=== PATIENT | male | born 1955 | race Caucasian/White ===

== ENCOUNTER 2020-09-15 11:19 | Inpatient (IN) ==
[~2020-09-15 11:19] MED LIST: ACETAMINOPHEN 325 MG TABLET PO PRN; MAGNESIUM SULF RIDER 2 GM in PREMIX 1 EACH IV PRN; MAGNESIUM SULF RIDER 4 GM in PREMIX 1 EACH IV PRN; MORPHINE 4 MG/1 ML VIAL IV PRN; ONDANSETRON 4 MG/2 ML VIAL IV PRN; diphenhydrAMINE CAP 25 MG CAPSULE PO PRN
[2020-09-15] MEDS ORDERED: POTASSIUM CHLORIDE RIDER 10 MEQ in PREMIX 1 EACH IV PRN (11:28)
[2020-09-15] MEDS ORDERED: MAGNESIUM SULF RIDER 2 GM in PREMIX 1 EACH IV PRN (11:28)
[2020-09-16 04:12] LABS: Basophils # 0.1 10*3/uL (0.0-0.2); Basophils % 0.6 % (0.0-0.8); Eosinophils # 0.3 10*3/uL (0.0-0.87); Eosinophils % 3.3 % (0.00-10.9); Hematocrit 33.9 VOL% (42.0-52.0); Hemoglobin 11.2 GM/DL (14.0-18.0); Immature Granulocytes % 0.4 %; Immature Granulocytes Absolute 0.04 #; Lymphocytes # 1.8 10*3/uL (1.4-4.0); Lymphocytes % 19.3 % (21.2-54.2); Mean Platelet Volume 11.7 FL (9.6-12.0); Monocytes % 9.5 % (1.7-12.7); Neutrophils % 66.9 % (38.7-73.9); Platelet Count 195 T/CUMM (130-400); Red Blood Count 3.57 MC/CUMM (3.8-5.5); Red Cell Distribution Width 15.4 % (9.3-17.3); White Blood Count 9.5 T/CUMM (4-12)
[2020-09-16 04:52] LABS: Albumin 3.4 G/DL (3.4-5.0); Bilirubin,Total 1.1 MG/DL (0.2-1.0); Calcium 9.3 MG/DL (8.5-10.1); Potassium 4.5 MMOL/L (3.5-5.1)
[2020-09-16] MEDS ORDERED: diphenhydrAMINE CAP 50 MG CAPSULE PO ONE (06:30)
[2020-09-16] MEDS ORDERED: DIAZEPAM 5 MG TABLET PO ONE (06:30)
[2020-09-16] MEDS ORDERED: HEPARIN/NACL 0.9% 2 UNITS/ML 1,000 ML IV ONE (06:46)
[2020-09-16] MEDS ORDERED: MIDAZOLAM 2 MG/2 ML VIAL ONE (07:15)
[2020-09-16] MEDS ORDERED: LIDOCAINE 1% 20 ML VIAL ONE (07:15)
[2020-09-16] MEDS ORDERED: fentaNYL 100 MCG/2 ML VIAL ONE (07:15)
[2020-09-16] MEDS ORDERED: SODIUM CHLORIDE 0.9% 1,000 ML IV SCH (08:30)
[2020-09-16] MEDS ORDERED: METOPROLOL TARTRATE 50 MG TABLET PO SCH (09:00)
[2020-09-16] MEDS ORDERED: PNEUMOCOCCAL VACCINE (13 VALENT) 0.5 ML SYRINGE IM ONE (09:00)
[2020-09-16] MEDS ORDERED: APIXABAN 5 MG TABLET PO SCH (09:00)
[2020-09-16] MEDS ORDERED: LIRAGLUTIDE SUBCUT SCH (09:00)
[2020-09-16] MEDS ORDERED: INFLUENZA VIRUS VACCINE 0.5 ML SYRINGE IM ONE (09:00)
[2020-09-16] MEDS: SOTALOL 80 MG TABLET PO SCH ×2 (09:29→21:35)
[2020-09-16] MEDS: glipiZIDE 10 MG TABLET PO SCH ×2 (09:29→16:14)
[2020-09-16] MEDS: MELOXICAM 7.5 MG TABLET PO SCH (09:30)
[2020-09-16] MEDS: METOPROLOL TARTRATE 25 MG TABLET PO SCH ×2 (09:30→21:36)
[2020-09-16] MEDS: RANOLAZINE 500 MG TABLET PO SCH ×2 (09:30→21:36)
[2020-09-16] MEDS: MULTIVITAMIN (CENTRUM) TABLET PO SCH (09:30)
[2020-09-16] MEDS: CHOLECALCIFEROL 1,000 UNIT TABLET PO SCH (09:30)
[2020-09-16] MEDS: amLODIPine 5 MG TABLET PO SCH (09:31)
[2020-09-16] MEDS: PANTOPRAZOLE 40 MG TABLET PO SCH (09:31)
[2020-09-16] MEDS: CARBOXYMETHYLCELLULOSE 1% OPH SOLN BOTH EYES SCH (09:31)
[2020-09-16] MEDS: cycloSPORINE OPH EMUL 1 VIAL BOTH EYES SCH ×2 (09:32→21:36)
[2020-09-16] MEDS ORDERED: ATORVASTATIN 20 MG TABLET PO SCH (21:00)
[2020-09-16] MEDS: PIOGLITAZONE 15 MG TABLET PO SCH (21:35)
[2020-09-16] MEDS: ASPIRIN EC 81 MG TABLET PO SCH (21:35)
[2020-09-16] MEDS: FLUOROMETHOLONE 0.1% OPH SUSP 5 ML BOTTLE BOTH EYES SCH (21:35)
[2020-09-16] MEDS: GABAPENTIN 300 MG CAPSULE PO SCH (21:36)
[2020-09-16] MEDS: PYRIDOXINE 100 MG TABLET PO SCH (21:36)
[2020-09-17 06:01] LABS: Basophils # 0.1 10*3/uL (0.0-0.2); Basophils % 0.7 % (0.0-0.8); Eosinophils # 0.4 10*3/uL (0.0-0.87); Eosinophils % 5.3 % (0.00-10.9); Hematocrit 34.3 VOL% (42.0-52.0); Hemoglobin 11.1 GM/DL (14.0-18.0); Immature Granulocytes % 0.4 %; Immature Granulocytes Absolute 0.03 #; Lymphocytes # 1.4 10*3/uL (1.4-4.0); Lymphocytes % 17.9 % (21.2-54.2); Mean Corpuscular HGB Conc 32.4 GM/DL (32-36); Mean Corpuscular Volume 96.1 FL (87-102); Mean Platelet Volume 11.7 FL (9.6-12.0); Monocytes % 10.8 % (1.7-12.7); Neutrophils % 64.9 % (38.7-73.9); Platelet Count 186 T/CUMM (130-400); Red Blood Count 3.57 MC/CUMM (3.8-5.5); Red Cell Distribution Width 14.7 % (9.3-17.3); White Blood Count 7.6 T/CUMM (4-12)
[2020-09-17 06:18] LABS: Calcium 8.8 MG/DL (8.5-10.1); Potassium 4.1 MMOL/L (3.5-5.1)
[2020-09-17 06:19] LABS: Calcium 8.8 MG/DL (8.5-10.1); Osmolality,Calculated 286.8 MOS/KG (273-304); Potassium 4.1 MMOL/L (3.5-5.1)
[2020-09-17] MEDS ORDERED: MAGNESIUM SULF RIDER 2 GM in PREMIX 1 EACH IV PRN (07:00)
[2020-09-17] MEDS ORDERED: MAGNESIUM SULF RIDER 4 GM in PREMIX 1 EACH IV PRN (07:00)
[2020-09-17] MEDS: amLODIPine 5 MG TABLET PO SCH (09:42)
[2020-09-17] MEDS: glipiZIDE 10 MG TABLET PO SCH ×2 (09:42→16:32)
[2020-09-17] MEDS: SOTALOL 80 MG TABLET PO SCH ×2 (09:42→20:53)
[2020-09-17] MEDS: CHOLECALCIFEROL 1,000 UNIT TABLET PO SCH (09:42)
[2020-09-17] MEDS: ASCORBIC ACID 500 MG TABLET PO SCH ×2 (09:42→20:43)
[2020-09-17] MEDS: MULTIVITAMIN (CENTRUM) TABLET PO SCH (09:43)
[2020-09-17] MEDS: METOPROLOL TARTRATE 25 MG TABLET PO SCH ×2 (09:43→20:43)
[2020-09-17] MEDS: MELOXICAM 7.5 MG TABLET PO SCH (09:43)
[2020-09-17] MEDS: PANTOPRAZOLE 40 MG TABLET PO SCH (09:43)
[2020-09-17] MEDS: RANOLAZINE 500 MG TABLET PO SCH ×2 (09:43→20:43)
[2020-09-17] MEDS: CARBOXYMETHYLCELLULOSE 1% OPH SOLN BOTH EYES SCH (09:46)
[2020-09-17] MEDS: cycloSPORINE OPH EMUL 1 VIAL BOTH EYES SCH ×2 (09:46→20:42)
[2020-09-17] MEDS ORDERED: GLUCAGON 1 MG VIAL IM PRN ×2 (10:16→13:24)
[2020-09-17] MEDS ORDERED: DEXTROSE 50% 25 GM/50 ML VIAL IV PRN ×2 (10:16→13:24)
[2020-09-17] MEDS: INSULIN REGULAR 100 UNIT/ML SUBCUT SCH ×2 (16:32→20:52)
[2020-09-17] MEDS: PYRIDOXINE 100 MG TABLET PO SCH (20:43)
[2020-09-17] MEDS: PIOGLITAZONE 15 MG TABLET PO SCH (20:43)
[2020-09-17] MEDS: ASPIRIN EC 81 MG TABLET PO SCH (20:43)
[2020-09-17] MEDS: GABAPENTIN 300 MG CAPSULE PO SCH (20:43)
[2020-09-17] MEDS: ATORVASTATIN 40 MG TABLET PO SCH (20:43)
[2020-09-17] MEDS: FLUOROMETHOLONE 0.1% OPH SUSP 5 ML BOTTLE BOTH EYES SCH (20:47)
[2020-09-18 06:05] LABS: Basophils % 0.3 % (0.0-0.8); Eosinophils # 0.6 10*3/uL (0.0-0.87); Eosinophils % 6.6 % (0.00-10.9); Hematocrit 35.7 VOL% (42.0-52.0); Hemoglobin 11.5 GM/DL (14.0-18.0); Immature Granulocytes % 0.6 %; Immature Granulocytes Absolute 0.05 #; Lymphocytes # 1.9 10*3/uL (1.4-4.0); Lymphocytes % 21.9 % (21.2-54.2); Mean Corpuscular HGB Conc 32.2 GM/DL (32-36); Mean Corpuscular Volume 96.2 FL (87-102); Mean Platelet Volume 12.1 FL (9.6-12.0); Monocytes % 9.5 % (1.7-12.7); Neutrophils % 61.1 % (38.7-73.9); Platelet Count 213 T/CUMM (130-400); Red Blood Count 3.71 MC/CUMM (3.8-5.5); Red Cell Distribution Width 14.6 % (9.3-17.3); White Blood Count 8.8 T/CUMM (4-12)
[2020-09-18 07:54] LABS: Calcium 8.9 MG/DL (8.5-10.1); Osmolality,Calculated 284.7 MOS/KG (273-304)
[2020-09-18] MEDS: METOPROLOL TARTRATE 25 MG TABLET PO SCH ×2 (08:42→21:28)
[2020-09-18] MEDS: MELOXICAM 7.5 MG TABLET PO SCH (08:42)
[2020-09-18] MEDS: amLODIPine 5 MG TABLET PO SCH (08:42)
[2020-09-18] MEDS: SOTALOL 80 MG TABLET PO SCH ×2 (08:42→21:29)
[2020-09-18] MEDS: CHOLECALCIFEROL 1,000 UNIT TABLET PO SCH (08:42)
[2020-09-18] MEDS: glipiZIDE 10 MG TABLET PO SCH ×2 (08:42→16:20)
[2020-09-18] MEDS: MULTIVITAMIN (CENTRUM) TABLET PO SCH (08:42)
[2020-09-18] MEDS: INSULIN REGULAR 100 UNIT/ML SUBCUT SCH ×4 (08:43→21:28)
[2020-09-18] MEDS: RANOLAZINE 500 MG TABLET PO SCH ×2 (08:43→21:23)
[2020-09-18] MEDS: cycloSPORINE OPH EMUL 1 VIAL BOTH EYES SCH ×2 (08:43→21:27)
[2020-09-18] MEDS: PANTOPRAZOLE 40 MG TABLET PO SCH (08:43)
[2020-09-18] MEDS: CARBOXYMETHYLCELLULOSE 1% OPH SOLN BOTH EYES SCH (08:43)
[2020-09-18] MEDS: ASCORBIC ACID 500 MG TABLET PO SCH ×2 (08:43→21:23)
[2020-09-18] MEDS ORDERED: FUROSEMIDE 40 MG/4 ML VIAL IV ONE (11:41)
[2020-09-18] MEDS: ASPIRIN EC 81 MG TABLET PO SCH (21:23)
[2020-09-18] MEDS: GABAPENTIN 300 MG CAPSULE PO SCH (21:23)
[2020-09-18] MEDS: PIOGLITAZONE 15 MG TABLET PO SCH (21:23)
[2020-09-18] MEDS: PYRIDOXINE 100 MG TABLET PO SCH (21:24)
[2020-09-18] MEDS: ATORVASTATIN 40 MG TABLET PO SCH (21:24)
[2020-09-18] MEDS: FLUOROMETHOLONE 0.1% OPH SUSP 5 ML BOTTLE BOTH EYES SCH (21:28)
[2020-09-19 06:36] LABS: Basophils % 0.5 % (0.0-0.8); Eosinophils # 0.5 10*3/uL (0.0-0.87); Eosinophils % 6.2 % (0.00-10.9); Hematocrit 34.1 VOL% (42.0-52.0); Hemoglobin 11.1 GM/DL (14.0-18.0); Immature Granulocytes % 0.8 %; Immature Granulocytes Absolute 0.06 #; Lymphocytes # 1.7 10*3/uL (1.4-4.0); Lymphocytes % 22.4 % (21.2-54.2); Mean Corpuscular HGB Conc 32.6 GM/DL (32-36); Mean Corpuscular Volume 95.3 FL (87-102); Mean Platelet Volume 12.3 FL (9.6-12.0); Monocytes % 8.8 % (1.7-12.7); Neutrophils % 61.3 % (38.7-73.9); Platelet Count 204 T/CUMM (130-400); Red Blood Count 3.58 MC/CUMM (3.8-5.5); Red Cell Distribution Width 14.5 % (9.3-17.3); White Blood Count 7.8 T/CUMM (4-12)
[2020-09-19 06:42] LABS: Calcium 8.6 MG/DL (8.5-10.1); Osmolality,Calculated 284.7 MOS/KG (273-304); Potassium 3.5 MMOL/L (3.5-5.1)
[2020-09-19 07:00] LABS: Albumin 3.3 G/DL (3.4-5.0); Bilirubin,Total 1.4 MG/DL (0.2-1.0); Calcium 8.5 MG/DL (8.5-10.1); Osmolality,Calculated 288.4 MOS/KG (273-304); Potassium 3.6 MMOL/L (3.5-5.1); Total Protein 6.7 G/DL (6.4-8.3)
[2020-09-19] MEDS ORDERED: CHLORHEXIDINE 4% SOLN 118 ML BOTTLE TOP SCH (09:00)
[2020-09-19] MEDS: SOTALOL 80 MG TABLET PO SCH ×2 (09:51→20:33)
[2020-09-19] MEDS: glipiZIDE 10 MG TABLET PO SCH ×2 (09:51→16:40)
[2020-09-19] MEDS: MELOXICAM 7.5 MG TABLET PO SCH (09:51)
[2020-09-19] MEDS: ASCORBIC ACID 500 MG TABLET PO SCH ×2 (09:51→20:29)
[2020-09-19] MEDS: RANOLAZINE 500 MG TABLET PO SCH ×2 (09:51→20:29)
[2020-09-19] MEDS: MULTIVITAMIN (CENTRUM) TABLET PO SCH (09:51)
[2020-09-19] MEDS: amLODIPine 5 MG TABLET PO SCH (09:52)
[2020-09-19] MEDS: PANTOPRAZOLE 40 MG TABLET PO SCH (09:52)
[2020-09-19] MEDS: CHOLECALCIFEROL 1,000 UNIT TABLET PO SCH (09:52)
[2020-09-19] MEDS: METOPROLOL TARTRATE 25 MG TABLET PO SCH ×2 (09:52→20:29)
[2020-09-19] MEDS: CARBOXYMETHYLCELLULOSE 1% OPH SOLN BOTH EYES SCH (09:56)
[2020-09-19] MEDS: CHLORHEXIDINE 0.12% ORAL RINSE 60 ML BOTTLE SWISH/SPIT SCH ×2 (09:56→20:28)
[2020-09-19] MEDS: cycloSPORINE OPH EMUL 1 VIAL BOTH EYES SCH ×2 (09:56→20:30)
[2020-09-19] MEDS ORDERED: SODIUM CHLORIDE 0.9% 1,000 ML IV SCH (10:30)
[2020-09-19] MEDS: INSULIN REGULAR 100 UNIT/ML SUBCUT SCH ×4 (10:41→20:32)
[2020-09-19 10:43] LABS: Allen Test Positive; Pt O2 Delivery Device Room Air
[2020-09-19 10:46] LABS: ABG Base Excess -3.1 MMOL/L (-2.5-2.5); ABG HCO3 21.8 MMOL/L (20-26); ABG Oxygen Saturation 95.8 % (95-100); ABG PO2 81.9 MM HG (80-95); ABG TCO2 19.1 MMOL/L (23-27)
[2020-09-19] MEDS ORDERED: POTASSIUM CHLORIDE 20 MEQ TABLET PO ONE (11:17)
[2020-09-19] MEDS: CHLORHEXIDINE 4% SOLN 118 ML BOTTLE TOP SCH ×2 (14:45→20:29)
[2020-09-19] MEDS: PYRIDOXINE 100 MG TABLET PO SCH (20:29)
[2020-09-19] MEDS: GABAPENTIN 300 MG CAPSULE PO SCH (20:29)
[2020-09-19] MEDS: ATORVASTATIN 40 MG TABLET PO SCH (20:29)
[2020-09-19] MEDS: ASPIRIN EC 81 MG TABLET PO SCH (20:29)
[2020-09-19] MEDS: PIOGLITAZONE 15 MG TABLET PO SCH (20:29)
[2020-09-19] MEDS: FLUOROMETHOLONE 0.1% OPH SUSP 5 ML BOTTLE BOTH EYES SCH (20:33)
[2020-09-20] MEDS ORDERED: PAPAVERINE 60 MG/2 ML VIAL ONE (04:56)
[2020-09-20] MEDS ORDERED: VANCOMYCIN 1,000 MG VIAL ONE (04:56)
[2020-09-20] MEDS ORDERED: VANCOMYCIN 500 MG VIAL ONE (04:56)
[2020-09-20] MEDS ORDERED: CEFUROXIME INJ 1,500 MG in SYRINGE 1 EACH IV ONE (05:00)
[2020-09-20] MEDS ORDERED: SODIUM CHLORIDE 0.9% 1,000 ML IV ONE (06:09)
[2020-09-20] MEDS ORDERED: LACTATED RINGERS 1,000 ML IV ONE ×4 (06:10→16:30)
[2020-09-20] MEDS ORDERED: PHENYLEPHRINE DRIP 20 MG/250 ML PREMIX IV ONE ×2 (06:12→10:44)
[2020-09-20] MEDS ORDERED: SODIUM CHLORIDE 0.9% 250 ML IV ONE (06:12)
[2020-09-20] MEDS ORDERED: HEPARIN/NACL 0.9% 2 UNITS/ML 500 ML IV ONE (06:13)
[2020-09-20] MEDS ORDERED: SEVOFLURANE 1 UNIT/15 MINUTE INH ONE (06:13)
[2020-09-20] MEDS ORDERED: AMINOCAPROIC ACID 5,000 MG/20 ML VIAL ONE ×4 (06:14)
[2020-09-20] MEDS ORDERED: MINERAL OIL/PETROLATUM OPH OINT 3.5 GM TUBE ONE (06:14)
[2020-09-20] MEDS ORDERED: VECURONIUM 10 MG VIAL IV ONE ×4 (06:19→09:20)
[2020-09-20] MEDS ORDERED: CALCIUM CHLORIDE 1,000 MG/10 ML VIAL IV ONE ×2 (06:19→09:11)
[2020-09-20] MEDS ORDERED: ETOMIDATE 40 MG/20 ML VIAL IV ONE (06:19)
[2020-09-20] MEDS ORDERED: LIDOCAINE 2% 5 ML VIAL ONE ×2 (06:19→11:10)
[2020-09-20] MEDS ORDERED: MIDAZOLAM 10 MG/2 ML VIAL ONE ×4 (06:27→09:20)
[2020-09-20] MEDS ORDERED: SUFentanil 250 MCG/5 ML AMP ONE ×2 (06:27→07:47)
[2020-09-20] MEDS ORDERED: FAMOTIDINE 20 MG/2 ML VIAL IV ONE (06:30)
[2020-09-20] MEDS ORDERED: ePHEDrine 50 MG/ML VIAL ONE (07:22)
[2020-09-20 07:43] LABS: ABG Base Excess -3.5 MMOL/L (-2.5-2.5); ABG HCO3 21.5 MMOL/L (20-26); ABG PCO2 36.7 MM HG (35-48); ABG TCO2 19.4 MMOL/L (23-27); Glucose Heart Surgery 222 MG/DL (74-106); Hematocrit Heart Surgery 30.8 PERCENT (42-52); PCO2 Patient Temp Arterial 36.7 MMHG; Patient Temperature 37 CELCIUS; Potassium Heart/CVR 4.3 MMOL/L (3.5-5.1); Sodium Heart/CVR 140 MMOL/L (135-145)
[2020-09-20 07:52] LABS: Bacteria,Urine Occasional /HPF (Few); Bilirubin,Urine Negative (Negative); Blood, Urine Negative (Negative); Glucose,Urine (UA) >=500 mg/dL (Negative); Ketones,Urine Negative (Negative); Mucus,Urine Occasional /LPF (Occasional); Nitrite,Urine Negative (Negative); Protein,Urine Negative; RBC,Urine 2 /HPF (0-4); Squamous Epithelial Cell,Urine Occasional /HPF (0-10); Urine Appearance CLEAR (Clear); Urine Color Yellow (Yellow); Urine Specific Gravity 1.016 (1.001-1.035); Urine Urobilinogen < 2.0 EU/DL (0.2-1.0); WBC,Urine <1 /HPF (0-6)
[2020-09-20] MEDS ORDERED: SODIUM BICARBONATE 50 MEQ/50 ML VIAL IV ONE ×2 (08:12→11:11)
[2020-09-20] MEDS ORDERED: POTASSIUM CHLORIDE RIDER 100 ML IV ONE (08:12)
[2020-09-20] MEDS ORDERED: NITROPRUSSIDE 50 MG/2 ML VIAL ONE (08:12)
[2020-09-20] MEDS ORDERED: PHENYLEPHRINE DRIP 40 MG/250 ML PREMIX IV ONE (08:13)
[2020-09-20] MEDS ORDERED: ALBUMIN 5% 12.5 GM/250 ML VIAL IV ONE (08:14)
[2020-09-20] MEDS ORDERED: LIDOCAINE 100 MG/5 ML SYRINGE ONE (08:14)
[2020-09-20] MEDS ORDERED: ATROPINE 1 MG/10 ML SYRINGE ONE (08:14)
[2020-09-20] MEDS ORDERED: EPINEPHrine 1 MG/10 ML SYRINGE ONE (08:15)
[2020-09-20] MEDS ORDERED: diphenhydrAMINE 50 MG/1 ML VIAL ONE (09:20)
[2020-09-20 09:39] LABS: Hematocrit Heart Surgery 24.4 PERCENT (42-52); Hemoglobin Heart Surgery 7.8 G/DL (14.0-18.0); PCO2 Patient Temp Venous 42.5 MM HG; PH Patient Temp Venous 7.352; PO2 Patient Temp Venous 43.1 MM HG; Potassium Heart/CVR 4.9 MMOL/L (3.5-5.1); VBG Base Excess -1.8 MEQ/L (0-4); VBG HCO3 22.6 MEQ/L (24-28); VBG Oxygen Saturation 75.8 %; VBG PCO2 44.6 MMHG (41-51); VBG PH 7.338; VBG PO2 46.2 MMHG (17-40); VBG Total CO2 22.6 MMOL/L
[2020-09-20 10:09] LABS: Hematocrit Heart Surgery 22.7 PERCENT (42-52); Hemoglobin Heart Surgery 7.3 G/DL (14.0-18.0); PCO2 Patient Temp Venous 36.1 MM HG; PH Patient Temp Venous 7.406; PO2 Patient Temp Venous 41.2 MM HG; Potassium Heart/CVR 5.4 MMOL/L (3.5-5.1); VBG Base Excess -1.6 MEQ/L (0-4); VBG HCO3 22.8 MEQ/L (24-28); VBG Oxygen Saturation 79.4 %; VBG PCO2 39.8 MMHG (41-51); VBG PH 7.377; VBG PO2 47.2 MMHG (17-40); VBG Total CO2 22.1 MMOL/L
[2020-09-20 10:39] LABS: Hematocrit Heart Surgery 22.9 PERCENT (42-52); Hemoglobin Heart Surgery 7.3 G/DL (14.0-18.0); PCO2 Patient Temp Venous 31.2 MM HG; PH Patient Temp Venous 7.454; Potassium Heart/CVR 5.5 MMOL/L (3.5-5.1); VBG Base Excess -1.5 MEQ/L (0-4); VBG HCO3 22.8 MEQ/L (24-28); VBG PCO2 34.4 MMHG (41-51); VBG PH 7.424; VBG PO2 39.1 MMHG (17-40); VBG Total CO2 21.3 MMOL/L
[2020-09-20 11:08] LABS: ABG Base Excess -3.2 MMOL/L (-2.5-2.5); ABG HCO3 21.7 MMOL/L (20-26); ABG PCO2 36.4 MM HG (35-48); ABG PH 7.379 (7.35-7.45); ABG TCO2 20.1 MMOL/L (23-27); Glucose Heart Surgery 313 MG/DL (74-106); Hematocrit Heart Surgery 24.1 PERCENT (42-52); Hemoglobin Heart Surgery 7.7 G/DL (14.0-18.0); Ionized Calcium Arterial 1.38 MMOL/L (1.21-1.46); PCO2 Patient Temp Arterial 36.4 MMHG; PH Patient Temp Arterial 7.379; Patient Temperature 37 CELCIUS; Potassium Heart/CVR 4.5 MMOL/L (3.5-5.1); Sodium Heart/CVR 132 MMOL/L (135-145)
[2020-09-20] MEDS ORDERED: ALBUMIN 25% 25 GM/100 ML VIAL IV ONE (11:10)
[2020-09-20] MEDS ORDERED: MAGNESIUM SULFATE 5 GM/10 ML VIAL IV ONE (11:10)
[2020-09-20] MEDS ORDERED: methylPREDNISolone SOD SUC 1,000 MG/8 ML VIAL ONE (11:10)
[2020-09-20] MEDS ORDERED: DEXTROSE 5% KCL 20 MEQ 20 MEQ/1,000 ML BAG IV ONE (11:10)
[2020-09-20] MEDS ORDERED: MANNITOL 100 GM/500 ML BAG IV ONE (11:10)
[2020-09-20] MEDS ORDERED: FUROSEMIDE 20 MG/2 ML VIAL ONE (11:11)
[2020-09-20] MEDS ORDERED: HEPARIN 10,000 UNIT/10 ML VIAL ONE (11:11)
[2020-09-20] MEDS ORDERED: PROTAMINE SULFATE 50 MG/5 ML VIAL IV ONE (11:11)
[2020-09-20] MEDS ORDERED: PROTAMINE SULFATE 250 MG/25 ML VIAL IV ONE (11:11)
[2020-09-20] MEDS ORDERED: SODIUM CHLORIDE 0.45% 1,000 ML IV SCH ×3 (11:45→11:48)
[2020-09-20] MEDS ORDERED: MIDAZOLAM 2 MG/2 ML VIAL IV PRN (11:48)
[2020-09-20] MEDS ORDERED: DEXTROSE 50% 25 GM/50 ML VIAL IV PRN ×2 (11:48)
[2020-09-20] MEDS ORDERED: CHLORHEXIDINE 4% SOLN 118 ML BOTTLE TOP PRN (11:48)
[2020-09-20] MEDS ORDERED: MAGNESIUM SULF RIDER 2 GM in PREMIX 1 EACH IV PRN (11:48)
[2020-09-20] MEDS ORDERED: LACTATED RINGERS 250 ML IV PRN (11:48)
[2020-09-20] MEDS ORDERED: MORPHINE 4 MG/1 ML VIAL IV PRN (11:48)
[2020-09-20] MEDS ORDERED: CALCIUM CHLORIDE 1,000 MG/10 ML SYRINGE IV PRN (11:48)
[2020-09-20] MEDS ORDERED: INSULIN REGULAR 100 UNIT/ML IV ONE (11:48)
[2020-09-20] MEDS ORDERED: ONDANSETRON 4 MG/2 ML VIAL IV PRN (11:48)
[2020-09-20] MEDS ORDERED: INSULIN REGULAR 100 UNIT/ML IV PRN (11:48)
[2020-09-20] MEDS ORDERED: PHENYLEPHRINE DRIP 40 MG/250 ML PREMIX IV PRN (11:48)
[2020-09-20] MEDS ORDERED: MAGNESIUM SULF RIDER 4 GM in PREMIX 1 EACH IV PRN (11:48)
[2020-09-20] MEDS ORDERED: NITROPRUSSIDE 100 MG in DEXTROSE 5% 250 ML IV PRN (11:48)
[2020-09-20] MEDS ORDERED: ACETAMINOPHEN 650 MG SUPP RECTAL PRN (11:48)
[2020-09-20] MEDS ORDERED: MORPHINE 10 MG/1 ML VIAL IV PRN (11:48)
[2020-09-20] MEDS ORDERED: MIDAZOLAM 10 MG/2 ML VIAL IV PRN (11:48)
[2020-09-20] MEDS ORDERED: VECURONIUM 10 MG VIAL IV PRN ×2 (11:48)
[2020-09-20 12:08] LABS: ABG Base Excess -4.1 MMOL/L (-2.5-2.5); ABG HCO3 19.5 MMOL/L (20-26); ABG Oxygen Saturation 98.9 % (95-100); ABG PCO2 30.5 MM HG (35-48); ABG PH 7.423 (7.35-7.45); ABG PO2 302.4 MM HG (80-95); ABG TCO2 20.4 MMOL/L (23-27); Glucose Heart Surgery 288 MG/DL (74-106); Hemoglobin Heart Surgery 10.8 G/DL (14.0-18.0); Potassium Heart/CVR 3.8 MMOL/L (3.5-5.1)
[2020-09-20 12:10] LABS: Basophils % 0.3 % (0.0-0.8); Eosinophils # 0.2 10*3/uL (0.0-0.87); Eosinophils % 1.3 % (0.00-10.9); Hematocrit 27.7 VOL% (42.0-52.0); Hemoglobin 8.8 GM/DL (14.0-18.0); Immature Granulocytes % 1.6 %; Lymphocytes # 0.8 10*3/uL (1.4-4.0); Lymphocytes % 6.7 % (21.2-54.2); Mean Corpuscular HGB Conc 31.8 GM/DL (32-36); Mean Corpuscular Volume 97.5 FL (87-102); Mean Platelet Volume 12.1 FL (9.6-12.0); Monocytes % 4.4 % (1.7-12.7); Neutrophils % 85.7 % (38.7-73.9); Platelet Count 166 T/CUMM (130-400); Red Blood Count 2.84 MC/CUMM (3.8-5.5); Red Cell Distribution Width 14.6 % (9.3-17.3); White Blood Count 12.1 T/CUMM (4-12)
[2020-09-20] MEDS: CHLORHEXIDINE 4% SOLN 118 ML BOTTLE TOP SCH (12:19)
[2020-09-20] MEDS: cycloSPORINE OPH EMUL 1 VIAL BOTH EYES SCH ×2 (12:22→22:31)
[2020-09-20] MEDS: POTASSIUM CHLORIDE RIDER 20 MEQ in PREMIX 1 EACH IV PRN ×4 (12:24→20:17)
[2020-09-20 12:27] LABS: INR 1.2; Partial Thromboplastin Time 28.2 SECS (23.9-33.8)
[2020-09-20 12:36] LABS: Albumin 3.2 G/DL (3.4-5.0); Bilirubin,Total 0.9 MG/DL (0.2-1.0); Calcium 8.8 MG/DL (8.5-10.1); Osmolality,Calculated 290.7 MOS/KG (273-304); Total Protein 5.4 G/DL (6.4-8.3)
[2020-09-20 12:37] LABS: CKMB % 9.7 %
[2020-09-20 12:41] LABS: Troponin I 3.41 NG/ML (0.00-0.045)
[2020-09-20] MEDS: POTASSIUM CHLORIDE RIDER 10 MEQ in PREMIX 1 EACH IV PRN ×2 (13:34→20:47)
[2020-09-20 13:41] LABS: VBG Base Excess -1.5 MEQ/L (0-4); VBG PCO2 37.8 MMHG (41-51); VBG PH 7.394; VBG PO2 35.6 MMHG (17-40)
[2020-09-20 13:42] LABS: VBG HCO3 22.6 MEQ/L (24-28); VBG Total CO2 21.2 MMOL/L
[2020-09-20 13:43] LABS: Potassium Heart/CVR 4.2 MMOL/L (3.5-5.1); Sodium Heart/CVR 138 MMOL/L (135-145)
[2020-09-20] MEDS: INSULIN REGULAR DRIP 100 ML IV SCH (14:28)
[2020-09-20 14:55] LABS: Hematocrit Heart Surgery 28.7 PERCENT (42-52); Hemoglobin Heart Surgery 9.3 G/DL (14.0-18.0); PCO2 Patient Temp Venous 38.9 MM HG; PH Patient Temp Venous 7.398; PO2 Patient Temp Venous 34.7 MM HG; Potassium Heart/CVR 4.1 MMOL/L (3.5-5.1); VBG Base Excess -0.7 MEQ/L (0-4); VBG HCO3 23.3 MEQ/L (24-28); VBG Oxygen Saturation 59.2 %; VBG PCO2 38.9 MMHG (41-51); VBG PH 7.398; VBG PO2 34.7 MMHG (17-40); VBG Total CO2 22.2 MMOL/L
[2020-09-20] MEDS: ALBUMIN 5% 12.5 GM in PREMIX 1 EACH IV PRN ×3 (16:00→19:39)
[2020-09-20 16:41] LABS: ABG Base Excess -2.8 MMOL/L (-2.5-2.5); ABG HCO3 22.1 MMOL/L (20-26); ABG PCO2 34.9 MM HG (35-48); ABG PH 7.396 (7.35-7.45); ABG TCO2 19.2 MMOL/L (23-27); Glucose Heart Surgery 229 MG/DL (74-106); Hemoglobin Heart Surgery 11.3 G/DL (14.0-18.0); Potassium Heart/CVR 3.5 MMOL/L (3.5-5.1)
[2020-09-20 18:31] LABS: ABG Base Excess -2.9 MMOL/L (-2.5-2.5); ABG Oxygen Saturation 99.5 % (95-100); ABG PCO2 38.8 MM HG (35-48); ABG PH 7.365 (7.35-7.45); ABG TCO2 20.5 MMOL/L (23-27); Glucose Heart Surgery 188 MG/DL (74-106); Hematocrit Heart Surgery 26.8 PERCENT (42-52); Hemoglobin Heart Surgery 8.6 G/DL (14.0-18.0); Potassium Heart/CVR 4.3 MMOL/L (3.5-5.1)
[2020-09-20] MEDS: CEFUROXIME INJ 1,500 MG in SYRINGE 1 EACH IV SCH (19:36)
[2020-09-20 20:03] LABS: ABG Base Excess -2.5 MMOL/L (-2.5-2.5); ABG HCO3 22.3 MMOL/L (20-26); ABG Oxygen Saturation 99.1 % (95-100); ABG PCO2 38.5 MM HG (35-48); ABG PH 7.373 (7.35-7.45); Glucose Heart Surgery 152 MG/DL (74-106); Hematocrit Heart Surgery 24.8 PERCENT (42-52); Potassium Heart/CVR 3.8 MMOL/L (3.5-5.1)
[2020-09-20 20:26] LABS: CKMB % 8.4 %
[2020-09-20 20:29] LABS: Troponin I 6.95 NG/ML (0.00-0.045)
[2020-09-20] MEDS: CHLORHEXIDINE 0.12% ORAL RINSE 60 ML BOTTLE SWISH/SPIT SCH (21:02)
[2020-09-20] MEDS ORDERED: FUROSEMIDE 40 MG/4 ML VIAL IV ONE (23:10)
[2020-09-21 00:18] LABS: ABG Base Excess -2.3 MMOL/L (-2.5-2.5); ABG HCO3 22.1 MMOL/L (20-26); ABG Oxygen Saturation 97.5 % (95-100); ABG PCO2 36.1 MM HG (35-48); ABG PH 7.404 (7.35-7.45); ABG PO2 108.4 MM HG (80-95); ABG TCO2 23.2 MMOL/L (23-27); Glucose Heart Surgery 92 MG/DL (74-106); Hemoglobin Heart Surgery 10.1 G/DL (14.0-18.0); Potassium Heart/CVR 3.9 MMOL/L (3.5-5.1)
[2020-09-21] MEDS: POTASSIUM CHLORIDE RIDER 20 MEQ in PREMIX 1 EACH IV PRN ×2 (00:26→04:25)
[2020-09-21] MEDS: POTASSIUM CHLORIDE RIDER 10 MEQ in PREMIX 1 EACH IV PRN ×2 (01:00→05:25)
[2020-09-21] MEDS: INSULIN REGULAR DRIP 100 ML IV SCH (01:17)
[2020-09-21 03:23] LABS: ABG Base Excess -1.2 MMOL/L (-2.5-2.5); ABG HCO3 23.4 MMOL/L (20-26); ABG Oxygen Saturation 99.1 % (95-100); ABG PCO2 32.9 MM HG (35-48); ABG PH 7.441 (7.35-7.45); ABG TCO2 20.3 MMOL/L (23-27); Glucose Heart Surgery 115 MG/DL (74-106); Hematocrit Heart Surgery 30.5 PERCENT (42-52); Hemoglobin Heart Surgery 9.9 G/DL (14.0-18.0); Potassium Heart/CVR 4.3 MMOL/L (3.5-5.1)
[2020-09-21 03:37] LABS: Basophils % 0.1 % (0.0-0.8); Hematocrit 29.7 VOL% (42.0-52.0); Hemoglobin 9.7 GM/DL (14.0-18.0); Immature Granulocytes % 0.9 %; Immature Granulocytes Absolute 0.19 #; Lymphocytes % 4.6 % (21.2-54.2); Mean Corpuscular HGB Conc 32.7 GM/DL (32-36); Mean Corpuscular Volume 93.1 FL (87-102); Mean Platelet Volume 12.1 FL (9.6-12.0); Monocytes % 4.8 % (1.7-12.7); Neutrophils % 89.6 % (38.7-73.9); Platelet Count 162 T/CUMM (130-400); Red Blood Count 3.19 MC/CUMM (3.8-5.5); Red Cell Distribution Width 15.6 % (9.3-17.3); White Blood Count 21.3 T/CUMM (4-12)
[2020-09-21 03:43] LABS: Alanine Aminotransferase 21 U/L (16-61); Albumin 3.1 G/DL (3.4-5.0); Alkaline Phosphatase 79 U/L (45-117); Aspartate Amino Transferase 19 U/L (0-37); Bilirubin,Total < 0.39 MG/DL (0.2-1.0); Blood Urea Nitrogen 10 MG/DL (7-18); Calcium 8.5 MG/DL (8.5-10.1); Carbon Dioxide 26 MMOL/L (21-32); Estimated Glom Filtration Rate 117 ML/MIN; Glucose 98 MG/DL (74-106); Osmolality,Calculated 275.5 MOS/KG (273-304); Potassium 3.7 MMOL/L (3.5-5.1); Sodium 139 MMOL/L (136-145); Total Protein 7.2 G/DL (6.4-8.3)
[2020-09-21 04:11] LABS: ABG Base Excess -1.3 MMOL/L (-2.5-2.5); ABG HCO3 23.4 MMOL/L (20-26); ABG Oxygen Saturation 98.1 % (95-100); ABG PCO2 33.2 MM HG (35-48); ABG PH 7.437 (7.35-7.45); ABG TCO2 20.4 MMOL/L (23-27); Glucose Heart Surgery 113 MG/DL (74-106); Hematocrit Heart Surgery 29.7 PERCENT (42-52); Hemoglobin Heart Surgery 9.6 G/DL (14.0-18.0); Potassium Heart/CVR 4.1 MMOL/L (3.5-5.1)
[2020-09-21 05:12] LABS: Hypochromasia Slight; Lymphocytes 3 % (20-55); Microcytosis Slight; Platelet Estimate Adequate; Segmented Neutrophils 92 % (50-85); Total Cells Counted 100
[2020-09-21] MEDS: CEFUROXIME INJ 1,500 MG in SYRINGE 1 EACH IV SCH ×2 (07:39→20:31)
[2020-09-21] MEDS ORDERED: amLODIPine 5 MG TABLET PO SCH (09:30)
[2020-09-21] MEDS ORDERED: SODIUM CHLOR 0.45% KCL 20 MEQ 20 MEQ/1,000 ML BAG IV SCH (09:51)
[2020-09-21] MEDS ORDERED: oxyCODONE/ACETAMINOPHEN 5-325 MG TABLET PO PRN (09:51)
[2020-09-21] MEDS ORDERED: ALUMINUM/MAGNES/SIMETH MAX STR 30 ML UDCUP PO PRN (09:51)
[2020-09-21] MEDS ORDERED: ONDANSETRON 4 MG/2 ML VIAL IV PRN (09:51)
[2020-09-21] MEDS ORDERED: MAGNESIUM SULF RIDER 2 GM in PREMIX 1 EACH IV PRN (09:51)
[2020-09-21] MEDS ORDERED: MAGNESIUM SULF RIDER 4 GM in PREMIX 1 EACH IV PRN (09:51)
[2020-09-21] MEDS ORDERED: KETOROLAC 30 MG/1 ML VIAL IM PRN (09:51)
[2020-09-21] MEDS ORDERED: DEXTROSE 50% 25 GM/50 ML VIAL IV PRN ×2 (09:51)
[2020-09-21] MEDS ORDERED: GLUCAGON 1 MG VIAL IM PRN ×2 (09:51)
[2020-09-21] MEDS ORDERED: ACETAMINOPHEN 325 MG TABLET PO PRN (09:51)
[2020-09-21] MEDS ORDERED: MAGNESIUM HYDROXIDE SUSP 30 ML UDCUP PO PRN (09:51)
[2020-09-21] MEDS: CHLORHEXIDINE 0.12% ORAL RINSE 60 ML BOTTLE SWISH/SPIT SCH ×2 (09:58→20:40)
[2020-09-21] MEDS: ASPIRIN EC 325 MG TABLET PO SCH (09:59)
[2020-09-21] MEDS: cycloSPORINE OPH EMUL 1 VIAL BOTH EYES SCH ×2 (10:11→20:41)
[2020-09-21] MEDS ORDERED: SOTALOL 80 MG TABLET PO SCH (12:18)
[2020-09-21] MEDS: ASCORBIC ACID 500 MG TABLET PO SCH ×2 (12:31→20:29)
[2020-09-21] MEDS: INSULIN REGULAR 100 UNIT/ML SUBCUT SCH ×3 (12:32→20:30)
[2020-09-21] MEDS ORDERED: SOTALOL 80 MG TABLET PO ONE (13:00)
[2020-09-21 14:16] LABS: CKMB % 6.4 %
[2020-09-21 14:18] LABS: Troponin I 8.76 NG/ML (0.00-0.045)
[2020-09-21] MEDS ORDERED: ASCORBIC ACID 500 MG TABLET PO SCH (15:00)
[2020-09-21] MEDS ORDERED: METOPROLOL TARTRATE 25 MG TABLET PO ONE (20:08)
[2020-09-21] MEDS: POTASSIUM CHLORIDE 20 MEQ TABLET PO PRN (20:28)
[2020-09-21] MEDS ORDERED: ATORVASTATIN 20 MG TABLET PO SCH (21:00)
[2020-09-21] MEDS ORDERED: ATORVASTATIN 40 MG TABLET PO SCH (21:00)
[2020-09-22] MEDS: POTASSIUM CHLORIDE 20 MEQ TABLET PO PRN (00:32)
[2020-09-22] MEDS: INSULIN REGULAR 100 UNIT/ML SUBCUT SCH ×7 (00:32→21:07)
[2020-09-22] MEDS: PANTOPRAZOLE 40 MG TABLET PO SCH (05:57)
[2020-09-22] MEDS ORDERED: FUROSEMIDE 40 MG/4 ML VIAL IV ONE (06:00)
[2020-09-22 06:03] LABS: Basophils % 0.1 % (0.0-0.8); Hematocrit 29.7 VOL% (42.0-52.0); Hemoglobin 9.4 GM/DL (14.0-18.0); Immature Granulocytes % 1.7 %; Immature Granulocytes Absolute 0.34 #; Lymphocytes % 4.9 % (21.2-54.2); Mean Corpuscular HGB Conc 31.6 GM/DL (32-36); Mean Corpuscular Volume 96.1 FL (87-102); Mean Platelet Volume 12.4 FL (9.6-12.0); Monocytes % 8.7 % (1.7-12.7); Neutrophils % 84.6 % (38.7-73.9); Platelet Count 127 T/CUMM (130-400); Red Blood Count 3.09 MC/CUMM (3.8-5.5); Red Cell Distribution Width 16.1 % (9.3-17.3); White Blood Count 19.6 T/CUMM (4-12)
[2020-09-22 06:30] LABS: Lymphocytes 4 % (20-55); Segmented Neutrophils 83 % (50-85); Total Cells Counted 100
[2020-09-22 06:31] LABS: Nucleated Red Blood Cells 1 (0-5)
[2020-09-22 06:40] LABS: Anisocytosis 1+; Macrocytosis 1+
[2020-09-22 06:41] LABS: Platelet Estimate Decreased
[2020-09-22 06:45] LABS: Albumin 3.1 G/DL (3.4-5.0); Bilirubin,Direct 0.27 MG/DL (0.0-0.20); Bilirubin,Total 1.5 MG/DL (0.2-1.0); Calcium 8.7 MG/DL (8.5-10.1); Potassium 4.4 MMOL/L (3.5-5.1)
[2020-09-22 06:49] LABS: Albumin 3.2 G/DL (3.4-5.0); Bilirubin,Direct 0.27 MG/DL (0.0-0.20); Bilirubin,Indirect 0.5 MG/DL (0.0-1.0); Bilirubin,Total 0.8 MG/DL (0.2-1.0); CKMB % 3.5 %; Total Protein 5.6 G/DL (6.4-8.3)
[2020-09-22 06:50] LABS: Troponin I 4.82 NG/ML (0.00-0.045)
[2020-09-22] MEDS: DOCUSATE SODIUM 100 MG CAPSULE PO SCH (09:00)
[2020-09-22] MEDS ORDERED: METOPROLOL TARTRATE 25 MG TABLET PO SCH (09:00)
[2020-09-22] MEDS: ASPIRIN EC 325 MG TABLET PO SCH (09:00)
[2020-09-22] MEDS ORDERED: SOTALOL 80 MG TABLET PO ONE ×2 (09:00→21:00)
[2020-09-22] MEDS: FERROUS SULFATE 325 MG TABLET PO SCH (09:00)
[2020-09-22] MEDS: CHLORHEXIDINE 0.12% ORAL RINSE 60 ML BOTTLE SWISH/SPIT SCH ×2 (09:01→21:06)
[2020-09-22] MEDS: ASCORBIC ACID 500 MG TABLET PO SCH ×2 (09:01→21:06)
[2020-09-22] MEDS ORDERED: MAGNESIUM SULF RIDER 2 GM in PREMIX 1 EACH IV ONE (10:24)
[2020-09-22] MEDS: cycloSPORINE OPH EMUL 1 VIAL BOTH EYES SCH ×2 (11:25→21:06)
[2020-09-22] MEDS ORDERED: APIXABAN 5 MG TABLET PO SCH (21:00)
[2020-09-22] MEDS: PYRIDOXINE 100 MG TABLET PO SCH (21:05)
[2020-09-22] MEDS: PIOGLITAZONE 15 MG TABLET PO SCH (21:06)
[2020-09-22] MEDS: GABAPENTIN 300 MG CAPSULE PO SCH (21:06)
[2020-09-22] MEDS: ATORVASTATIN 40 MG TABLET PO SCH (21:06)
[2020-09-22] MEDS: FLUOROMETHOLONE 0.1% OPH SUSP 5 ML BOTTLE BOTH EYES SCH (21:07)
[2020-09-22] MEDS: ZALEPLON 5 MG CAPSULE PO PRN (21:10)
[2020-09-23 06:04] LABS: Basophils % 0.1 % (0.0-0.8); Eosinophils % 0.1 % (0.00-10.9); Hematocrit 29.2 VOL% (42.0-52.0); Hemoglobin 9.5 GM/DL (14.0-18.0); Immature Granulocytes % 0.9 %; Immature Granulocytes Absolute 0.14 #; Lymphocytes % 6.2 % (21.2-54.2); Mean Corpuscular HGB Conc 32.5 GM/DL (32-36); Mean Corpuscular Volume 94.8 FL (87-102); Mean Platelet Volume 12.6 FL (9.6-12.0); Monocytes % 9.8 % (1.7-12.7); Neutrophils % 82.9 % (38.7-73.9); Platelet Count 124 T/CUMM (130-400); Red Blood Count 3.08 MC/CUMM (3.8-5.5); Red Cell Distribution Width 15.7 % (9.3-17.3); White Blood Count 15.4 T/CUMM (4-12)
[2020-09-23 06:24] LABS: Alanine Aminotransferase 25 U/L (16-61); Albumin 3.2 G/DL (3.4-5.0); Alkaline Phosphatase 66 U/L (45-117); Aspartate Amino Transferase 29 U/L (0-37); Bilirubin,Indirect 0.6 MG/DL (0.0-1.0); Total Protein 5.7 G/DL (6.4-8.3)
[2020-09-23 06:25] LABS: Albumin 3.2 G/DL (3.4-5.0); Bilirubin,Direct 0.19 MG/DL (0.0-0.20); Bilirubin,Total 0.9 MG/DL (0.2-1.0); Calcium 8.5 MG/DL (8.5-10.1); Osmolality,Calculated 291.7 MOS/KG (273-304); Potassium 4.5 MMOL/L (3.5-5.1); Total Protein 6.2 G/DL (6.4-8.3)
[2020-09-23 06:37] LABS: Calcium 8.5 MG/DL (8.5-10.1); Potassium 4.4 MMOL/L (3.5-5.1)
[2020-09-23] MEDS: INSULIN REGULAR 100 UNIT/ML SUBCUT SCH ×4 (08:00→20:45)
[2020-09-23] MEDS ORDERED: SOTALOL 80 MG TABLET PO SCH (09:00)
[2020-09-23] MEDS: ASCORBIC ACID 500 MG TABLET PO SCH ×2 (09:00→20:45)
[2020-09-23] MEDS ORDERED: ENOXAPARIN 40 MG/0.4 ML SYRINGE SUBCUT ONE (11:40)
[2020-09-23] MEDS: ENOXAPARIN 100 MG/ML SYRINGE SUBCUT SCH (11:53)
[2020-09-23] MEDS ORDERED: SOTALOL 80 MG TABLET PO ONE (13:27)
[2020-09-23] MEDS: DOCUSATE SODIUM 100 MG CAPSULE PO SCH (15:57)
[2020-09-23] MEDS: FERROUS SULFATE 325 MG TABLET PO SCH (15:57)
[2020-09-23] MEDS: ASPIRIN EC 325 MG TABLET PO SCH (15:57)
[2020-09-23] MEDS: PANTOPRAZOLE 40 MG TABLET PO SCH (15:57)
[2020-09-23] MEDS: glipiZIDE 10 MG TABLET PO SCH (15:57)
[2020-09-23] MEDS: CHLORHEXIDINE 0.12% ORAL RINSE 60 ML BOTTLE SWISH/SPIT SCH ×2 (15:58→20:45)
[2020-09-23] MEDS: cycloSPORINE OPH EMUL 1 VIAL BOTH EYES SCH ×2 (15:58→20:45)
[2020-09-23] MEDS: glipiZIDE 5 MG TABLET PO SCH (15:58)
[2020-09-23] MEDS: MELOXICAM 7.5 MG TABLET PO SCH (15:58)
[2020-09-23] MEDS: PYRIDOXINE 100 MG TABLET PO SCH (20:45)
[2020-09-23] MEDS: ATORVASTATIN 40 MG TABLET PO SCH (20:45)
[2020-09-23] MEDS: PIOGLITAZONE 15 MG TABLET PO SCH (20:45)
[2020-09-23] MEDS: GABAPENTIN 300 MG CAPSULE PO SCH (20:45)
[2020-09-23] MEDS: FLUOROMETHOLONE 0.1% OPH SUSP 5 ML BOTTLE BOTH EYES SCH (20:46)
[2020-09-24] MEDS: ENOXAPARIN 100 MG/ML SYRINGE SUBCUT SCH ×2 (00:44→12:53)
[2020-09-24 06:06] LABS: Basophils % 0.2 % (0.0-0.8); Eosinophils # 0.5 10*3/uL (0.0-0.87); Eosinophils % 3.6 % (0.00-10.9); Hematocrit 28.8 VOL% (42.0-52.0); Hemoglobin 9.5 GM/DL (14.0-18.0); Immature Granulocytes Absolute 0.13 #; Lymphocytes # 2.2 10*3/uL (1.4-4.0); Lymphocytes % 17.1 % (21.2-54.2); Mean Corpuscular Volume 93.8 FL (87-102); Mean Platelet Volume 12.8 FL (9.6-12.0); Monocytes % 9.3 % (1.7-12.7); Neutrophils % 68.8 % (38.7-73.9); Platelet Count 133 T/CUMM (130-400); Red Blood Count 3.07 MC/CUMM (3.8-5.5); Red Cell Distribution Width 15.2 % (9.3-17.3); White Blood Count 12.9 T/CUMM (4-12)
[2020-09-24] MEDS: PANTOPRAZOLE 40 MG TABLET PO SCH (06:14)
[2020-09-24 06:28] LABS: Calcium 8.5 MG/DL (8.5-10.1); Osmolality,Calculated 290.5 MOS/KG (273-304)
[2020-09-24] MEDS ORDERED: ENOXAPARIN 40 MG/0.4 ML SYRINGE SUBCUT SCH (09:00)
[2020-09-24] MEDS: ASPIRIN EC 325 MG TABLET PO SCH (09:43)
[2020-09-24] MEDS: ASCORBIC ACID 500 MG TABLET PO SCH ×2 (09:43→21:39)
[2020-09-24] MEDS: DOCUSATE SODIUM 100 MG CAPSULE PO SCH (09:44)
[2020-09-24] MEDS: FERROUS SULFATE 325 MG TABLET PO SCH (09:44)
[2020-09-24] MEDS: glipiZIDE 10 MG TABLET PO SCH (09:44)
[2020-09-24] MEDS: MELOXICAM 7.5 MG TABLET PO SCH (09:44)
[2020-09-24] MEDS: CHLORHEXIDINE 0.12% ORAL RINSE 60 ML BOTTLE SWISH/SPIT SCH ×2 (09:45→21:40)
[2020-09-24] MEDS: cycloSPORINE OPH EMUL 1 VIAL BOTH EYES SCH ×2 (09:45→21:43)
[2020-09-24] MEDS: INSULIN REGULAR 100 UNIT/ML SUBCUT SCH ×4 (09:45→21:39)
[2020-09-24] MEDS: POLYETHYLENE GLYCOL POWDER 17 GM PACK PO SCH (09:45)
[2020-09-24] MEDS ORDERED: DEXTROSE 50% 25 GM/50 ML VIAL IV PRN (11:59)
[2020-09-24] MEDS: metFORMIN 500 MG TABLET PO SCH (16:10)
[2020-09-24] MEDS: glipiZIDE 5 MG TABLET PO SCH (16:10)
[2020-09-24] MEDS: PIOGLITAZONE 15 MG TABLET PO SCH (21:39)
[2020-09-24] MEDS: PYRIDOXINE 100 MG TABLET PO SCH (21:39)
[2020-09-24] MEDS: ATORVASTATIN 40 MG TABLET PO SCH (21:39)
[2020-09-24] MEDS: GABAPENTIN 300 MG CAPSULE PO SCH (21:39)
[2020-09-24] MEDS: ZALEPLON 5 MG CAPSULE PO PRN (21:42)
[2020-09-24] MEDS: FLUOROMETHOLONE 0.1% OPH SUSP 5 ML BOTTLE BOTH EYES SCH (21:43)
[2020-09-25] MEDS: PANTOPRAZOLE 40 MG TABLET PO SCH (05:37)
[2020-09-25 06:10] LABS: Basophils % 0.2 % (0.0-0.8); Eosinophils # 0.7 10*3/uL (0.0-0.87); Eosinophils % 6.4 % (0.00-10.9); Hematocrit 28.6 VOL% (42.0-52.0); Hemoglobin 9.3 GM/DL (14.0-18.0); Immature Granulocytes % 1.5 %; Immature Granulocytes Absolute 0.16 #; Lymphocytes # 1.9 10*3/uL (1.4-4.0); Lymphocytes % 18.1 % (21.2-54.2); Mean Corpuscular HGB Conc 32.5 GM/DL (32-36); Mean Corpuscular Volume 94.4 FL (87-102); Mean Platelet Volume 12.5 FL (9.6-12.0); Monocytes % 9.6 % (1.7-12.7); Neutrophils % 64.2 % (38.7-73.9); Platelet Count 136 T/CUMM (130-400); Red Blood Count 3.03 MC/CUMM (3.8-5.5); Red Cell Distribution Width 14.8 % (9.3-17.3); White Blood Count 10.6 T/CUMM (4-12)
[2020-09-25 06:30] LABS: Alanine Aminotransferase 33 U/L (16-61); Albumin 2.7 G/DL (3.4-5.0); Alkaline Phosphatase 59 U/L (45-117); Aspartate Amino Transferase 19 U/L (0-37); Bilirubin,Indirect 1.2 MG/DL (0.0-1.0); Blood Urea Nitrogen 33 MG/DL (7-18); Calcium 8.5 MG/DL (8.5-10.1); Carbon Dioxide 22 MMOL/L (21-32); Estimated Glom Filtration Rate 93 ML/MIN; Glucose 132 MG/DL (74-106); Osmolality,Calculated 281.8 MOS/KG (273-304); Potassium 3.7 MMOL/L (3.5-5.1); Sodium 137 MMOL/L (136-145); Total Protein 5.7 G/DL (6.4-8.3)
[2020-09-25] MEDS: FERROUS SULFATE 325 MG TABLET PO SCH (08:56)
[2020-09-25] MEDS: POTASSIUM CHLORIDE 20 MEQ TABLET PO PRN ×2 (08:56→12:17)
[2020-09-25] MEDS: DOCUSATE SODIUM 100 MG CAPSULE PO SCH (08:56)
[2020-09-25] MEDS: ASPIRIN EC 325 MG TABLET PO SCH (08:56)
[2020-09-25] MEDS: POLYETHYLENE GLYCOL POWDER 17 GM PACK PO SCH (08:57)
[2020-09-25] MEDS: metFORMIN 500 MG TABLET PO SCH ×2 (08:57→17:00)
[2020-09-25] MEDS: MELOXICAM 7.5 MG TABLET PO SCH (08:58)
[2020-09-25] MEDS: glipiZIDE 10 MG TABLET PO SCH (08:58)
[2020-09-25] MEDS: ASCORBIC ACID 500 MG TABLET PO SCH ×2 (08:58→20:24)
[2020-09-25] MEDS: CHLORHEXIDINE 0.12% ORAL RINSE 60 ML BOTTLE SWISH/SPIT SCH ×2 (08:59→20:30)
[2020-09-25] MEDS: APIXABAN 5 MG TABLET PO SCH ×2 (08:59→20:25)
[2020-09-25] MEDS: INSULIN REGULAR 100 UNIT/ML SUBCUT SCH ×4 (08:59→20:25)
[2020-09-25] MEDS ORDERED: SOTALOL 80 MG TABLET PO SCH (09:00)
[2020-09-25] MEDS: cycloSPORINE OPH EMUL 1 VIAL BOTH EYES SCH ×2 (09:00→20:28)
[2020-09-25] MEDS: glipiZIDE 5 MG TABLET PO SCH (17:00)
[2020-09-25] MEDS: ATORVASTATIN 40 MG TABLET PO SCH (20:24)
[2020-09-25] MEDS: SOTALOL 80 MG TABLET PO SCH (20:25)
[2020-09-25] MEDS: ZALEPLON 5 MG CAPSULE PO PRN (20:25)
[2020-09-25] MEDS: PYRIDOXINE 100 MG TABLET PO SCH (20:25)
[2020-09-25] MEDS: PIOGLITAZONE 15 MG TABLET PO SCH (20:25)
[2020-09-25] MEDS: GABAPENTIN 300 MG CAPSULE PO SCH (20:25)
[2020-09-25] MEDS: FLUOROMETHOLONE 0.1% OPH SUSP 5 ML BOTTLE BOTH EYES SCH (20:28)
[2020-09-26 04:56] LABS: Basophils % 0.4 % (0.0-0.8); Eosinophils # 0.6 10*3/uL (0.0-0.87); Eosinophils % 5.9 % (0.00-10.9); Hematocrit 27.3 VOL% (42.0-52.0); Hemoglobin 8.9 GM/DL (14.0-18.0); Immature Granulocytes % 1.9 %; Lymphocytes % 18.7 % (21.2-54.2); Mean Corpuscular HGB Conc 32.6 GM/DL (32-36); Mean Corpuscular Volume 93.8 FL (87-102); Neutrophils % 65.1 % (38.7-73.9); Platelet Count 142 T/CUMM (130-400); Red Blood Count 2.91 MC/CUMM (3.8-5.5); Red Cell Distribution Width 14.8 % (9.3-17.3); White Blood Count 10.7 T/CUMM (4-12)
[2020-09-26 05:32] LABS: Alanine Aminotransferase 27 U/L (16-61); Albumin 2.6 G/DL (3.4-5.0); Alkaline Phosphatase 57 U/L (45-117); Aspartate Amino Transferase 13 U/L (0-37); Bilirubin,Indirect 0.6 MG/DL (0.0-1.0); Blood Urea Nitrogen 24 MG/DL (7-18); Calcium 8.4 MG/DL (8.5-10.1); Carbon Dioxide 23 MMOL/L (21-32); Estimated Glom Filtration Rate 83 ML/MIN; Glucose 126 MG/DL (74-106); Osmolality,Calculated 284.4 MOS/KG (273-304); Potassium 4.4 MMOL/L (3.5-5.1); Sodium 140 MMOL/L (136-145); Total Protein 5.6 G/DL (6.4-8.3)
[2020-09-26] MEDS: PANTOPRAZOLE 40 MG TABLET PO SCH (05:42)
[2020-09-26] MEDS: INSULIN REGULAR 100 UNIT/ML SUBCUT SCH (08:30)
[2020-09-26] MEDS ORDERED: ASPIRIN EC 81 MG TABLET PO SCH (09:00)
[2020-09-26 09:08] VITALS: BP 122/66
[2020-09-26] MEDS: ASCORBIC ACID 500 MG TABLET PO SCH (10:01)
[2020-09-26] MEDS: FERROUS SULFATE 325 MG TABLET PO SCH (10:01)
[2020-09-26] MEDS: SOTALOL 80 MG TABLET PO SCH (10:02)
[2020-09-26] MEDS: APIXABAN 5 MG TABLET PO SCH (10:02)
[2020-09-26] MEDS: metFORMIN 500 MG TABLET PO SCH (10:02)
[2020-09-26] MEDS: MELOXICAM 7.5 MG TABLET PO SCH (10:03)
[2020-09-26] MEDS: POLYETHYLENE GLYCOL POWDER 17 GM PACK PO SCH (10:03)
[2020-09-26] MEDS: glipiZIDE 10 MG TABLET PO SCH (10:03)
[2020-09-26] MEDS: CHLORHEXIDINE 0.12% ORAL RINSE 60 ML BOTTLE SWISH/SPIT SCH (10:03)
[2020-09-26] MEDS: DOCUSATE SODIUM 100 MG CAPSULE PO SCH (10:03)
[2020-09-26] MEDS: cycloSPORINE OPH EMUL 1 VIAL BOTH EYES SCH (10:04)
[2020-09-27] MEDS ORDERED: metFORMIN 500 MG TABLET PO SCH (08:00)
== END 2020-09-26 12:11 | disposition home health service (06) | DRG 217 ==
LOC: INTOOBSV 19:30 → N.TELES 19:30 → EDSTATUS 09-16 07:30 → N.CVR 09-20 11:26 → N.TELES 09-21 14:47
PROVIDERS: ADMIT Internal Medicine Interventional Cardiology; ATTEND Internal Medicine Interventional Cardiology

== ENCOUNTER 2021-08-23 18:08 | Inpatient (IN) ==
[2021-08-23 20:18] LABS: Basophils # 0.1 10*3/uL (0.0-0.2); Basophils % 0.8 % (0.0-0.8); Eosinophils # 0.4 10*3/uL (0.0-0.87); Eosinophils % 3.7 % (0.00-10.9); Hematocrit 35.6 VOL% (42.0-52.0); Hemoglobin 11.5 GM/DL (14.0-18.0); Immature Granulocytes % 0.5 %; Immature Granulocytes Absolute 0.05 #; Lymphocytes % 30.9 % (21.2-54.2); Mean Corpuscular HGB Conc 32.3 GM/DL (32-36); Mean Corpuscular Volume 92.2 FL (87-102); Mean Platelet Volume 11.8 FL (9.6-12.0); Monocytes % 8.4 % (1.7-12.7); Neutrophils % 55.7 % (38.7-73.9); Platelet Count 165 T/CUMM (130-400); Red Blood Count 3.86 MC/CUMM (3.8-5.5); Red Cell Distribution Width 13.7 % (9.3-17.3); White Blood Count 9.7 T/CUMM (4-12)
[2021-08-23 20:19] LABS: Albumin 3.2 G/DL (3.4-5.0); Bilirubin,Total 0.7 MG/DL (0.20-1.00); Calcium 9.1 MG/DL (8.5-10.1); Total Protein 7.2 G/DL (6.4-8.2)
[2021-08-23 20:27] LABS: INR 1.1; PT Patient Result 11.8 SECS (10.5-12.0); Partial Thromboplastin Time 29.7 SECS (23.8-32.1)
[2021-08-23] MEDS ORDERED: SODIUM CHLORIDE 0.9% 1,000 ML IV STA (20:57)
[2021-08-23] MEDS ORDERED: MAGNESIUM SULF RIDER 2 GM/50 ML PREMIX IV STA (20:57)
[2021-08-24] MEDS ORDERED: MAGNESIUM SULF RIDER 2 GM/50 ML PREMIX IV PRN (01:32)
[2021-08-24] MEDS ORDERED: ZALEPLON 5 MG CAPSULE PO PRN (01:32)
[2021-08-24] MEDS ORDERED: DEXTROSE 50% 25 GM/50 ML SYRINGE IV PRN (01:32)
[2021-08-24] MEDS ORDERED: GLUCAGON 1 MG VIAL IM PRN (01:32)
[2021-08-24] MEDS ORDERED: ONDANSETRON 4 MG/2 ML VIAL IV PRN (01:32)
[2021-08-24] MEDS ORDERED: MAGNESIUM SULF RIDER 4 GM/100 ML PREMIX IV PRN (01:32)
[2021-08-24] MEDS: SODIUM CHLORIDE 0.45% 1,000 ML IV SCH ×2 (04:58→09:32)
[2021-08-24 06:32] LABS: Calcium 8.7 MG/DL (8.5-10.1); Osmolality,Calculated 287.1 MOS/KG (273-304); Potassium 3.8 MMOL/L (3.5-5.1)
[2021-08-24] MEDS ORDERED: POTASSIUM CHLORIDE 20 MEQ TABLET PO ONE (06:49)
[2021-08-24] MEDS ORDERED: MAGNESIUM SULF RIDER 4 GM/100 ML PREMIX IV ONE (06:52)
[2021-08-24] MEDS: INSULIN REGULAR 100 UNIT/ML SUBCUT SCH ×4 (08:30→20:40)
[2021-08-24] MEDS ORDERED: PANTOPRAZOLE 40 MG TABLET PO SCH (09:00)
[2021-08-24] MEDS: ASPIRIN 325 MG TABLET PO SCH (09:11)
[2021-08-24] MEDS: cycloSPORINE OPH EMUL 1 VIAL BOTH EYES SCH ×2 (09:11→20:40)
[2021-08-24] MEDS: glipiZIDE 10 MG TABLET PO SCH ×2 (09:11→20:39)
[2021-08-24] MEDS: PANTOPRAZOLE 40 MG TABLET PO SCH (10:15)
[2021-08-24] MEDS: MULTIVITAMIN (CENTRUM) TABLET PO SCH (10:23)
[2021-08-24] MEDS: MAGNESIUM CHLORIDE 64 MG TABLET PO SCH ×2 (10:23→20:39)
[2021-08-24] MEDS: CHOLECALCIFEROL 1,000 UNIT TABLET PO SCH (10:23)
[2021-08-24] MEDS: OMEGA 3 ACID ETHYL ESTERS 1 GM CAPSULE PO SCH (10:23)
[2021-08-24] MEDS: METOPROLOL TARTRATE 25 MG TABLET PO SCH ×2 (12:57→20:40)
[2021-08-24] MEDS: PYRIDOXINE 100 MG TABLET PO SCH (20:39)
[2021-08-24] MEDS: ASCORBIC ACID 500 MG TABLET PO SCH (20:39)
[2021-08-24] MEDS: ATORVASTATIN 20 MG TABLET PO SCH (20:40)
[2021-08-24] MEDS: GABAPENTIN 300 MG CAPSULE PO SCH (20:40)
[2021-08-24] MEDS: APIXABAN 5 MG TABLET PO SCH (20:40)
[2021-08-24] MEDS: PIOGLITAZONE 15 MG TABLET PO SCH (20:44)
[2021-08-25 04:40] LABS: Basophils # 0.1 10*3/uL (0.0-0.2); Basophils % 0.8 % (0.0-0.8); Eosinophils # 0.3 10*3/uL (0.0-0.87); Eosinophils % 3.5 % (0.00-10.9); Hematocrit 34.9 VOL% (42.0-52.0); Hemoglobin 11.4 GM/DL (14.0-18.0); Immature Granulocytes % 0.2 %; Immature Granulocytes Absolute 0.02 #; Lymphocytes # 2.3 10*3/uL (1.4-4.0); Lymphocytes % 26.8 % (21.2-54.2); Mean Corpuscular HGB Conc 32.7 GM/DL (32-36); Mean Corpuscular Volume 92.3 FL (87-102); Mean Platelet Volume 11.5 FL (9.6-12.0); Monocytes % 8.3 % (1.7-12.7); Neutrophils % 60.4 % (38.7-73.9); Platelet Count 165 T/CUMM (130-400); Red Blood Count 3.78 MC/CUMM (3.8-5.5); Red Cell Distribution Width 13.5 % (9.3-17.3); White Blood Count 8.5 T/CUMM (4-12)
[2021-08-25 05:02] LABS: Calcium 8.7 MG/DL (8.5-10.1); Osmolality,Calculated 284.5 MOS/KG (273-304); Potassium 4.2 MMOL/L (3.5-5.1)
[2021-08-25] MEDS ORDERED: MAGNESIUM SULF RIDER 2 GM/50 ML PREMIX IV ONE (06:50)
[2021-08-25] MEDS ORDERED: METOPROLOL TARTRATE 25 MG TABLET PO ONE (10:13)
[2021-08-25] MEDS: INSULIN REGULAR 100 UNIT/ML SUBCUT SCH ×4 (10:17→22:17)
[2021-08-25] MEDS: OMEGA 3 ACID ETHYL ESTERS 1 GM CAPSULE PO SCH (10:18)
[2021-08-25] MEDS: ASCORBIC ACID 500 MG TABLET PO SCH ×2 (10:18→22:16)
[2021-08-25] MEDS: MULTIVITAMIN (CENTRUM) TABLET PO SCH (10:19)
[2021-08-25] MEDS: APIXABAN 5 MG TABLET PO SCH ×2 (10:19→22:16)
[2021-08-25] MEDS: glipiZIDE 10 MG TABLET PO SCH ×2 (10:19→22:16)
[2021-08-25] MEDS: CHOLECALCIFEROL 1,000 UNIT TABLET PO SCH (10:19)
[2021-08-25] MEDS: ASPIRIN 325 MG TABLET PO SCH (10:19)
[2021-08-25] MEDS: MAGNESIUM CHLORIDE 64 MG TABLET PO SCH ×2 (10:19→22:16)
[2021-08-25] MEDS: cycloSPORINE OPH EMUL 1 VIAL BOTH EYES SCH ×2 (10:20→22:21)
[2021-08-25] MEDS: PANTOPRAZOLE 40 MG TABLET PO SCH (10:20)
[2021-08-25] MEDS: METOPROLOL TARTRATE 25 MG TABLET PO SCH (10:54)
[2021-08-25] MEDS: ATORVASTATIN 20 MG TABLET PO SCH (22:16)
[2021-08-25] MEDS: METOPROLOL TARTRATE 50 MG TABLET PO SCH (22:17)
[2021-08-25] MEDS: GABAPENTIN 300 MG CAPSULE PO SCH (22:17)
[2021-08-25] MEDS: PIOGLITAZONE 15 MG TABLET PO SCH (22:17)
[2021-08-26] MEDS: PYRIDOXINE 100 MG TABLET PO SCH (04:31)
[2021-08-26 05:04] LABS: Basophils # 0.1 10*3/uL (0.0-0.2); Basophils % 0.8 % (0.0-0.8); Eosinophils # 0.5 10*3/uL (0.0-0.87); Eosinophils % 3.6 % (0.00-10.9); Hematocrit 37.2 VOL% (42.0-52.0); Hemoglobin 12.2 GM/DL (14.0-18.0); Immature Granulocytes % 0.3 %; Immature Granulocytes Absolute 0.04 #; Lymphocytes # 5.4 10*3/uL (1.4-4.0); Lymphocytes % 43.6 % (21.2-54.2); Mean Corpuscular HGB Conc 32.8 GM/DL (32-36); Mean Corpuscular Volume 91.9 FL (87-102); Mean Platelet Volume 11.6 FL (9.6-12.0); Monocytes % 7.9 % (1.7-12.7); Neutrophils % 43.8 % (38.7-73.9); Platelet Count 221 T/CUMM (130-400); Red Blood Count 4.05 MC/CUMM (3.8-5.5); Red Cell Distribution Width 13.6 % (9.3-17.3); White Blood Count 12.4 T/CUMM (4-12)
[2021-08-26 05:31] LABS: Calcium 9.2 MG/DL (8.5-10.1); Osmolality,Calculated 281.3 MOS/KG (273-304); Potassium 3.7 MMOL/L (3.5-5.1)
[2021-08-26] MEDS ORDERED: MAGNESIUM CHLORIDE 64 MG TABLET PO SCH (09:00)
[2021-08-26] MEDS ORDERED: POTASSIUM CHLORIDE 10 MEQ TABLET PO SCH (09:00)
[2021-08-26] MEDS: APIXABAN 5 MG TABLET PO SCH (09:21)
[2021-08-26] MEDS: OMEGA 3 ACID ETHYL ESTERS 1 GM CAPSULE PO SCH (09:21)
[2021-08-26] MEDS: CHOLECALCIFEROL 1,000 UNIT TABLET PO SCH (09:21)
[2021-08-26] MEDS: PANTOPRAZOLE 40 MG TABLET PO SCH (09:22)
[2021-08-26] MEDS: ASPIRIN 325 MG TABLET PO SCH (09:22)
[2021-08-26] MEDS: MULTIVITAMIN (CENTRUM) TABLET PO SCH (09:22)
[2021-08-26] MEDS: METOPROLOL TARTRATE 50 MG TABLET PO SCH (09:22)
[2021-08-26] MEDS: glipiZIDE 10 MG TABLET PO SCH (09:30)
[2021-08-26] MEDS: ASCORBIC ACID 500 MG TABLET PO SCH (09:31)
[2021-08-26 10:15] VITALS: BP 135/62
[2021-08-26] MEDS: INSULIN REGULAR 100 UNIT/ML SUBCUT SCH (10:43)
[2021-08-26] MEDS: cycloSPORINE OPH EMUL 1 VIAL BOTH EYES SCH (10:44)
== END 2021-08-26 11:06 | disposition home or self-care (01) | DRG 309 ==
LOC: N.EDINP 18:08 → N.ED 18:08 → N.TELEN 08-24 00:56
PROVIDERS: ADMIT Internal Medicine Interventional Cardiology; ATTEND Internal Medicine Interventional Cardiology